=== PATIENT | male | born 1960 | race Caucasian/White ===

== ENCOUNTER 2017-11-17 22:57 | Inpatient (IN) ==
--- NOTE | 2017-11-18 01:16 | Internal Med History&Physical ---
Date of Encounter: 11/18/17 Time of Encounter: 01:12 Internal Medicine - H&P: HPI Chief complaint: right lower abd pain Admitted From: Intrahospital Transfer Plans for Post Hospital Care: Home History of present illness: Mr. Franklin is a 57 year old male Patient with history of smoking, hypertension, previous kidney stone 5 years ago , patient presented to [facility] emergency room with right lower quadrant pain with nausea vomiting fever and chills started about 5 PM yesterday evaluation with ct of abd/pelvis shows a moderate-sized hydronephrosis with 4 mm kidney stone patient was then transferred here for further evaluation patient still have persistent right lower quadrant pain blood pressure was 202/94 patient said he does not go to the doctor and so is not aware of hypertension or medical problems. Past Med Surg Social Fam HX - Past Medical History Medical history: hypertension Additional medical history: patient unsure of history, states he does not go to the doctor. - Social History Smoking Status: Current every day smoker Packs per day: 1 Smokeless Tobacco Status: No Alcohol use: none Drug use: none All Systems PM: A 10-system review of systems was performed and is negative for pertinent findings except as documented above in the HPI. - Head Head exam: Present: atraumatic, normocephalic - Eye Eye exam: Present: PERRL, conjuntiva pink, sclera anicteric Pupils: Present: PERRL - Neck Neck exam general surgery: Present: supple, trachea midline. Absent: lymphadenopathy - Respiratory Respiratory exam: Present: CTAB. Absent: accessory muscle use, rales, rhonchi, wheezes - Cardiovascular Cardiovascular exam: Present: RRR, +S1, +S2. Absent: diastolic murmur, gallop, rubs, systolic murmur - GI/Abdominal GI/Abdominal exam: Present: normal bowel sounds, soft, no peritoneal signs. Absent: distended, tenderness - Extremities Exam Extremities exam: Present: warm, radial pulses palpable and symmetrical. Absent : calf tenderness, cyanotic, pedal edema - Neurological Exam Neurological exam: Present: CN II-XII intact, oriented X3, no focal deficits. Absent: pronater drift, facial droop, speech deficit - Skin Skin exam: Present: dry, intact - Assessment and plan (1) Kidney stone on right side Current Visit: Yes Status: Acute Assessment and plan: presentation with right kidney staone and hydronephrosis will consult urology and keep npo (2) Hypertensive urgency Current Visit: Yes Status: Acute Assessment and plan: will start on norvasc 10 mg po and hydralazine prn (3) Smoking Current Visit: Yes Status: Chronic (4) Leukocytosis Current Visit: Yes Status: Acute Assessment and plan: send for urine and blood cultures Qualifiers: Leukocytosis type: unspecified Qualified Code(s): D72.829 - Elevated white blood cell count, unspecified - Time Spent With Patient Total time spent is greater than 50% in coordination of care (as documented) at patient's floor/unit and/or counseling patient:
[2017-11-18] MEDS ORDERED: *HR* HYDROcodone/Acet 5/325 mg TABLET PO PRN ×3 (01:20→18:55)
[2017-11-18] MEDS ORDERED: Naloxone 0.4 MG/ML INJ IVP PRN ×2 (01:20→18:55)
[2017-11-18] MEDS ORDERED: traMADol 50 MG TABLET PO PRN ×2 (01:20→18:55)
[2017-11-18] MEDS ORDERED: Acetaminophen 325 MG TABLET PO PRN ×2 (01:20→18:55)
[2017-11-18 01:59] LABS: Hematocrit 43.8 % (37.5-50.1); Mean Corpuscular HGB Conc 34.2 g/dL (31.6-35.5); Mean Corpuscular Hemoglobin 31.5 pg (28.0-33.3); Platelet Count 249 K/mcL (140-400); Red Blood Count 4.76 M/mcL (4.19-5.50); Red Cell Distribution Width 12.2 % (11.5-14.5)
[2017-11-18 02:15] LABS: Alanine Aminotransferase 15 Units/L (7-52); Albumin 4.7 g/dL (3.5-5.7); Alkaline Phosphatase 67 Units/L (34-104); Aspartate Amino Transferase 16 Units/L (13-39); BUN/Creatinine Ratio 10 (6-26); Bilirubin,Total 0.7 mg/dL (0.3-1.0); Blood Urea Nitrogen 14 mg/dL (6-20); Calcium 9.1 mg/dL (8.6-10.3); Carbon Dioxide 23 mEq/L (23-29); Chloride 107 mEq/L (98-107); Chol/HDL Ratio 4.3 (0-4.9); Cholesterol 200 mg/dL (< 200); Globulin 2.3 g/dL (2.4-3.5); Glucose 135 mg/dL (70-105); HDL Cholesterol 46 mg/dL (40-59); LDL Cholesterol,Calculated 133 mg/dL (0-99); Magnesium 1.9 mg/dL (1.6-2.6); Osmolality,Calculated 287 (280-300); Potassium 4.1 mEq/L (3.5-5.1); Sodium 137 mEq/L (136-145); Triglycerides 103 mg/dL (< 150); eGFR For Non-African Americans 50 (> 60)
[2017-11-18] MEDS ORDERED: *HR* Enoxaparin 40 MG/0.4 ML SYRINGE SQ SCH (06:00)
[2017-11-18] MEDS ORDERED: Ondansetron 4 MG/2 ML VIAL IVP PRN ×2 (06:01→18:55)
--- NOTE | 2017-11-18 07:16 | Urology - Consult Note ---
Date of Encounter: 11/18/17 Time of Encounter: 07:14 - Assessment and Plan (1) Elevated serum creatinine Current Visit: Yes Status: Acute Assessment and plan: Unsure if this is patient's baseline are related to obstructing stone. Will need IV fluids. We will discuss with my partner Dr. Brennan regarding possible treatment of distal stone. (2) Hypertensive urgency Current Visit: Yes Status: Acute Assessment and plan: Patient does not go to a doctor regularly. Unsure if this is patient's baseline related to pain. (3) Kidney stone on right side Current Visit: Yes Status: Acute Assessment and plan: We will order KUB for evaluation of possible distal stone. We will discuss plan with Dr. Brennan my partner regarding treatment. Urology CN:HPI Consult date: 11/18/17 Reason for consult Urology: Other (right) Requesting physician: Sarmad Little History of present illness: Umang is a 57-year-old male with a history of recent sudden onset of right- sided flank pain. Patient was seen in outside facility. He is found of a distal 4 mm stone. Patient was also found to have severely out of control blood pressure with systolics above 200. Patient with occasional nausea without vomiting. No fevers. Patient did have some mild proximal hydronephrosis. Past Med Surg Social Fam HX - Past Medical History Medical history: hypertension Additional medical history: patient unsure of history, states he does not go to the doctor. - Social History Smoking Status: Current every day smoker Packs per day: 1 Smokeless Tobacco Status: No Alcohol use: none Drug use: none Medications and Allergies 3 Allergy/AdvReac Type Severity Reaction Status Date / Time Amoxicillin Allergy Hives Verified 11/18/17 01:31 Review of Systems - Constitutional no chills, no fever(s) - EENT Nose, mouth and throat: no dizziness, no throat swelling - Cardiovascular no chest pain, no dyspnea - Respiratory no cough, no dyspnea - Gastrointestinal abdominal pain, nausea, no vomiting - Genitourinary as per HPI - Musculoskeletal back pain - Integumentary no erythema, no swelling - Neurological no sensory deficit - Psychiatric no anxiety, no confusion - Hematologic/Lymphatic no lymphadenopathy - Allergic/Immunologic no wheezing Exam Initial Vital Signs Temp Pulse Resp BP Pulse Ox 98 F 70 14 195/115 96 11/18/17 00:53 11/18/17 00:53 11/18/17 00:53 11/18/17 00:53 11/18/17 00:53 General/Neuological: alert and oriented x 3 Eyes: normal pupils, non-icteric Neck: no lymphadenopathy noted, supple to touch Cardiovascular: RRR, no murmurs Respiratory: normal respiratory effort, clear bilaterally ABD: soft, nontender, no masses palpated, good bowel sounds Back: no pain on percussion bilaterally Skin: no rashes noted Musculoskeletal: normal gait, FROMx4 Urology Results - Labs 11/18/17 01:43 11/18/17 01:43 Abnormal lab results WBC 12.3 K/mcL (4.3-11.1) H 11/18/17 01:43 Creatinine 1.45 mg/dL (0.70-1.30) H 11/18/17 01:43 Est GFR (Non-Af Amer) 50 (> 60) L 11/18/17 01:43 Glucose 135 mg/dL (70-105) H 11/18/17 01:43 POC Glucose 127 mg/dL (70-99) H 11/18/17 05:55 Globulin 2.3 g/dL (2.4-3.5) L 11/18/17 01:43 Cholesterol 200 mg/dL (< 200) H 11/18/17 01:43 LDL Cholesterol, Calc 133 mg/dL (0-99) H 11/18/17 01:43 Diabetes panel 11/18/17 Range/Units 01:43 Sodium 137 (136-145) mEq/L Potassium 4.1 (3.5-5.1) mEq/L Chloride 107 (98-107) mEq/L Carbon Dioxide 23 (23-29) mEq/L BUN 14 (6-20) mg/dL Creatinine 1.45 H (0.70-1.30) mg/dL Glucose 135 H (70-105) mg/dL Calcium 9.1 (8.6-10.3) mg/dL AST 16 (13-39) Units/L ALT 15 (7-52) Units/L Alkaline Phosphatase 67 (34-104) Units/L Albumin 4.7 (3.5-5.7) g/dL Triglycerides 103 (< 150) mg/dL HDL Cholesterol 46 (40-59) mg/dL Calcium panel 11/18/17 Range/Units 01:43 Calcium 9.1 (8.6-10.3) mg/dL Albumin 4.7 (3.5-5.7) g/dL Pituitary panel 11/18/17 Range/Units 01:43 Sodium 137 (136-145) mEq/L Potassium 4.1 (3.5-5.1) mEq/L Chloride 107 (98-107) mEq/L Carbon Dioxide 23 (23-29) mEq/L BUN 14 (6-20) mg/dL Creatinine 1.45 H (0.70-1.30) mg/dL Glucose 135 H (70-105) mg/dL Calcium 9.1 (8.6-10.3) mg/dL Adrenal panel 11/18/17 Range/Units 01:43 Sodium 137 (136-145) mEq/L Potassium 4.1 (3.5-5.1) mEq/L Chloride 107 (98-107) mEq/L Carbon Dioxide 23 (23-29) mEq/L BUN 14 (6-20) mg/dL Creatinine 1.45 H (0.70-1.30) mg/dL Glucose 135 H (70-105) mg/dL Calcium 9.1 (8.6-10.3) mg/dL Total Bilirubin 0.7 (0.3-1.0) mg/dL AST 16 (13-39) Units/L ALT 15 (7-52) Units/L Alkaline Phosphatase 67 (34-104) Units/L Albumin 4.7 (3.5-5.7) g/dL All other labs normal. Consult Discharge Plan - Plan Referrals: NONE,PCP [Primary Care Provider] - Alessandro Lock [Family Provider] -
[2017-11-18] MEDS ORDERED: *HR* Promethazine 25 MG/ML VIAL IVP PRN ×3 (08:09→18:55)
[2017-11-18] MEDS ORDERED: cefTRIAXone 1,000 MG in Water for inj. (sterile) 20 ML 10 ML IVP SCH (09:00)
[2017-11-18] MEDS ORDERED: amLODIPine 5 MG TABLET PO SCH (09:00)
[2017-11-18] MEDS: Ringers Solution, Lactated 1,000 ML IVC SCH ×2 (09:03→19:50)
--- NOTE | 2017-11-18 10:11 | Event Note ---
Date of Encounter: 11/18/17 Time of Encounter: 08:15 Patient feeling better today but does have continued to have severe nausea. Urology evaluated patient and are considering possible procedure. Continue to keep nothing by mouth. IV fluids. IV antibiotics. Start Phenergan for nausea.
--- NOTE | 2017-11-18 10:44 | Event Note ---
Date of Encounter: 11/18/17 Time of Encounter: 10:43 I saw and examined Mr. Franklin today. Briefly, he is a 57-year-old gentleman who experienced acute onset right flank pain yesterday. He came to an outside emergency department and a CT scan showed a 4 mm distal right ureteral stone. He is still having pain today and wishes to have a stone removed. I will schedule him for a right ureteroscopy, laser lithotripsy, and stent placement. He was informed of the risks of the procedure including but not limited to bleeding, infection, injury to other structures, need for further procedures, stent irritation, incomplete fragmentation, ureteral perforation, need for nephrostomy tube, need for open repair, risks unforeseen, and the risk of anesthesia. He is willing to proceed.
[2017-11-18] MEDS ORDERED: Isovue-300 50 ML VIAL IVP ONE (14:37)
--- NOTE | 2017-11-18 15:46 | Anesthesia Evaluation PreOp ---
Date of Encounter: 11/18/17 Time of Encounter: 15:44 - Past History Planned Operation: Right Ureteroscopic Stone Extraction Cardiac History: HTN Pulmonary History: Smoker (38 years), Snore AUTHOR AGENT History: Denies Any Significant HX Other Medical History: Renal (kidney stones), GERD Anesthesia History: No Prior Anesthetic Complications, Past Anesthesia Alcohol Use: none Drug use: none Medications and Allergies No Known Home Drugs 11/18/17 [History] 3 Allergy/AdvReac Type Severity Reaction Status Date / Time Amoxicillin Allergy Hives Verified 11/18/17 01:31 - Meds/Allergy Pre-op Review Medications Reviewed: Yes Allergies Reviewed: Yes Beta Blockers on Current Med List: No Anesthesia Results - Labs 11/18/17 01:43 11/18/17 01:43 Anesthesia Exam Vital Signs/O2 Sat/Glucose, Most Recent Temp Pulse Resp BP Pulse Ox 98.7 F 75 16 164/95 96 11/18/17 09:00 11/18/17 09:00 11/18/17 09:00 11/18/17 09:00 11/18/17 09:00 Blood Glucose* 109 Height: 5'8''/1.73m Weight: 180 lbs/81.8 kg NPO (# of Hours): 8 Pain Scale: 0 Pain Scale Used: Numeric (1 - 10) - HEENT Pupil (Motor): EOMI Mallampati: II Teeth: Normal Oral Opening: Greater than 3 - AUTHOR AGENT LOC: Oriented AUTHOR AGENT Motor: Normal RUE, Normal LUE, Normal RLE, Normal LLE, Normal Face AUTHOR AGENT Sensory: Normal: RUE, LUE, RLE, LLE, Face - Cardiac Rhythm: Regular Murmur: None - Pulmonary Breath Sounds: bilateral Clear Respiratory Effort: Symmetrical Anesthesia Assess/Plan ASA Score: 2 Modified Edison Scale for Level of Consciousness: Cooperative, oriented, and tranquil Anesthetic Plan: General Monitoring Plan: Standard Monitors Recovery Plan: PACU
[2017-11-18] MEDS ORDERED: KETAMINE HCL 50 MG/ML SYRINGE IV ONE (15:48)
[2017-11-18] MEDS ORDERED: *HR* FentaNYL (PF) 100 MCG/2 ML VIAL ONE (15:50)
[2017-11-18] MEDS ORDERED: *HR* Midazolam HCl 2 MG/2 ML VIAL ONE (15:50)
[2017-11-18] MEDS ORDERED: *HR* Propofol 200 MG/20 ML VIAL IVP ONE (15:50)
[2017-11-18] MEDS ORDERED: Lidocaine -MPF 2% 2 ML VIAL ONE (15:50)
[2017-11-18] MEDS ORDERED: Acetaminophen IV 1,000 MG/100 ML INFUS..BTL ONE (15:55)
[2017-11-18] MEDS ORDERED: Albuterol 2.5 MG/3 ML NEBULIZER IH ONE (15:58)
[2017-11-18] MEDS ORDERED: Albuterol 2.5 MG/3 ML NEBULIZER ONE (16:00)
--- NOTE | 2017-11-18 16:10 | Event Note ---
Date of Encounter: 11/18/17 Time of Encounter: 10:00 This patient was admitted today . He is admitted here for acute right lower abdominal pain for 1 day .He has worsening right flank pain since yesterday. He has localized, colickey, constant ,right flank pain radiating down to right groin. He rates his pain 9/10 ( yesterday) , now it has come down to 2-3/10 . He reported to an outside emergency department and a CT scan showed a 4 mm right ureteral stone with mild hydronephrosis right side. He admits 1 episode of vomiting and nausea, fever with chills . He is getting better today, he denies any fever ,chills . He is recurrent kidney stone passer, He had h/o kidney stone almost 5 years back, He stated that stone came down without any intervention at that time.He is still having pain today and wishes to have a stone removed. He has planned for right ureteroscopy, laser lithotripsy, and stent placement.We will continue monitoring after he is back from OR. HTN:He has high blood pressure : 202/94 during admission. Now BP has been controlled gradually : latest record 164/95 We are closely monitoring it . Examination finding Head Head exam: Present: atraumatic, normocephalic - Eye Eye exam: Present: PERRL, conjuntiva pink, sclera anicteric Pupils: Present: PERRL - Neck Neck exam general surgery: Present: supple, trachea midline. Absent: lymphadenopathy - Respiratory Respiratory exam: Present: CTAB. Absent: accessory muscle use, rales, rhonchi, wheezes - Cardiovascular Cardiovascular exam: Present: RRR, +S1, +S2. Absent: diastolic murmur, gallop, rubs, systolic murmur - GI/Abdominal GI/Abdominal exam: Soft, mild tenderness in right lumbar region,CVT ++, no rigidity and guarding, no mass , no visible pulsation.BS present, no organomegaly, - Extremities Exam Extremities exam: Present: warm, radial pulses palpable and symmetrical. Absent : calf tenderness, cyanotic, pedal edema - Neurological Exam Neurological exam: Present: CN II-XII intact, oriented X3, no focal deficits. Absent: pronater drift, facial droop, speech deficit - Skin Skin exam: Present: dry, intact
[2017-11-18] MEDS ORDERED: *HR* Succinylcholine 200 MG/10 ML VIAL IVP ONE (16:36)
[2017-11-18] MEDS ORDERED: Ketorolac 30 MG/ML VIAL ONE (16:54)
[2017-11-18] MEDS ORDERED: Ondansetron 4 MG/2 ML VIAL ONE (16:54)
[2017-11-18] MEDS ORDERED: Dexamethasone 4 MG/ML VIAL ONE (16:54)
--- NOTE | 2017-11-18 17:01 | Operative Note ---
Date of procedure: 11/18/17 Pre-op diagnosis: Right ureteral stone Post-op diagnosis: same Procedure: Right ureteroscopy, basket stone extraction, right ureteral stent placement. Implants: 6 [place] Islander x 26cm JJ stent. Complications: none Anesthesia: GETA Surgeon: Rick Brennan Was there an press assistant present: No Estimated blood loss (cc): 0 Specimen: right ureteral stone Condition: stable Disposition: PACU Procedure in Detail: Indications: Mr. Franklin is a 57-year-old gentleman who has a history of right flank pain. A CT scan showed a 4 mm stone in the distal right ureter. He elected to undergo a right ureteroscopy, laser lithotripsy, and stent placement. He is aware of the risks of the procedure including but not limited to bleeding, infection, injury to other structures, need for further procedures, stent irritation, and the risk of anesthesia. He is willing to proceed. Procedure: After informed consent was obtained the patient was brought back to the operating room and placed in supine position. A time out was performed. General anesthesia was administered and an LMA was placed. He was then placed in the lithotomy position. He was prepped and draped in the usual sterile fashion. Cystoscopy was performed. The anterior urethra was normal. There was no evidence of bladder tumors. The ureteral orifices were in the normal orthotopic position. The Zip wire was placed in the right ureteral orifice and brought into the kidney under fluoroscopic guidance. The ureter was gently dilated using the 8/10-Sol[place] Islander ureteral dilator. I then advanced the semirigid ureteroscope into the ureter. The stone was basket extracted. A 6 [place] Islander by 26cm JJ stent was then placed with good curl seen in the kidney and the bladder. The dangle string left intact. The string was secured to the glans using a Tegaderm. The patient was then awakened from general anesthesia and brought to recovery room in good condition. All sponge, needle, and instrument counts were correct.
[2017-11-18] MEDS ORDERED: *HR* Labetalol 20 MG/4 ML SYRINGE IVP PRN (17:06)
[2017-11-18] MEDS ORDERED: *HR* OxyCODONE Immed Rel 5 MG TABLET PO PRN (17:06)
[2017-11-18] MEDS ORDERED: *HR* Labetalol 100 MG/20 ML MDV IVP PRN (17:30)
--- NOTE | 2017-11-18 17:48 | Anesthesia Evaluation Post Op ---
Date of Encounter: 11/18/17 Time of Encounter: 17:40 - Vital Signs Vital Signs: Vital Signs/O2 Sat, Most Current Temp Pulse Resp BP Pulse Ox 98.9 F 78 16 148/98 97 11/18/17 17:01 11/18/17 17:21 11/18/17 17:21 11/18/17 17:21 11/18/17 17:21 - Lungs Lungs: Clear Ascult./Percussion - Airway Airway: Non-obstructed - Cardiovascular Regular Rate, Baseline Rhythm - Mental Status Mental Status: Alert & Oriented, Answers Appropriately - Pain Pain Scale: 0 Pain Scale used: Numeric (1 - 10) - Nausea Vomiting Nausea Vomiting: Not Present - Hydration Hydration: Tolerates oral liquids, Ice chips, Able to void - Discharge PostOp Status: Transfer Patient to floor
[2017-11-19] MEDS: Ringers Solution, Lactated 1,000 ML IVC SCH ×2 (00:53→04:19)
[2017-11-19] MEDS ORDERED: *HR* Enoxaparin 40 MG/0.4 ML SYRINGE SQ SCH (06:00)
--- NOTE | 2017-11-19 08:33 | Urology Progress Note ---
Date of Encounter: 11/19/17 Time of Encounter: 08:32 - Assessment and Plan (1) Kidney stone on right side Current Visit: Yes Status: Acute Assessment and plan: Doing well. He can be discharged home today. He can remove stent in 4-5 days. F/u with urology in 3-4 weeks. Progress Note Narrative: Doing well today. Pain is controlled. No fevers overnight. Objective Initial Vital Signs Temp Pulse Resp BP Pulse Ox 98 F 70 14 195/115 96 11/18/17 00:53 11/18/17 00:53 11/18/17 00:53 11/18/17 00:53 11/18/17 00:53 - General physical appearance Present: well developed, well nourished, no distress - Respiratory Present: normal respiratory effort - Abdomen Present: soft - Labs 11/18/17 01:43 11/18/17 01:43 - VTE Documentation of Mechanical Device: Intermittent pneumatic compression device Consult Discharge Plan - Plan Referrals: Rick Brennan MD [Partnered Physician] -
[2017-11-19 08:42] LABS: BUN/Creatinine Ratio 13 (6-26); Blood Urea Nitrogen 18 mg/dL (6-20); Calcium 8.7 mg/dL (8.6-10.3); Carbon Dioxide 24 mEq/L (23-29); Chloride 106 mEq/L (98-107); Glucose 134 mg/dL (70-105); Osmolality,Calculated 286 (280-300); Potassium 4.4 mEq/L (3.5-5.1); Sodium 136 mEq/L (136-145); eGFR For Non-African Americans 52 (> 60)
[2017-11-19] MEDS ORDERED: amLODIPine 5 MG TABLET PO SCH (09:00)
[2017-11-19] MEDS ORDERED: cefTRIAXone 1,000 MG in Water for inj. (sterile) 20 ML 10 ML IVP SCH (09:00)
--- NOTE | 2017-11-19 10:29 | Discharge Summary ---
- NOTES TO OUTPATIENT PROVIDER Notes to Outpatient Provider: Patient hospitalized for acute renal colic. He was treated with IV fluids and then evaluated by urology and underwent right ureteroscopy, basket stone extraction and right ureteral stent placement. He does have elevation in his creatinine but unknown baseline. He also has uncontrolled hypertension and has been placed on antihypertensives with improvement in his blood pressure. His creatinine is improving but is still elevated. Has been cleared for discharge by urology. Would arrange for outpatient follow-up with urology. We will also arrange for outpatient follow- up with any primary care provider. Also check basic panel in 1 week. Orders not resulted at time of discharge: Pending orders 11/18/17 01:43 Culture,Blood [BC] Routine 11/18/17 16:52 Surgical Pathology [PTH] Routine Date of Encounter: 11/19/17 Time of Encounter: 10:29 - Discharge Diagnosis (1) Ureteric colic Priority: Primary Status: Acute (2) Elevated serum creatinine Priority: Secondary Status: Acute (3) Hypertensive urgency Priority: Secondary Status: Acute (4) Leukocytosis Priority: Secondary Status: Acute Qualifiers: Leukocytosis type: unspecified Qualified Code(s): D72.829 - Elevated white blood cell count, unspecified (5) Smoking Priority: Secondary Status: Chronic Hospital course: Mr. Franklin is a 57 year old male Patient with a history of hypertension not on any medications was hospitalized for acute renal colic. He was treated with IV fluids and then evaluated by urology and underwent right ureteroscopy, basket stone extraction and right ureteral stent placement. He does have elevation in his creatinine but unknown baseline. He also has uncontrolled hypertension and has been placed on antihypertensives with improvement in his blood pressure. His creatinine is improving but is still elevated. Has been cleared for discharge by urology. Would arrange for outpatient follow-up with urology. We will also arrange for outpatient follow-up with any primary care provider. Also check basic panel in 1 week. Discharge discussed with: patient, nurse - Time Spent with Patient Total time spent providing and/or coordinating discharge services: Less than 30 minutes (25 min) - Discharge Medications Prescriptions: Amlodipine Besylate 10 mg PO DAILY #30 tablet Cefdinir [Omnicef] 300 mg PO BID #10 capsule Home Medications: Amlodipine Besylate 10 mg PO DAILY #30 tablet 11/19/17 [Rx] Cefdinir [Omnicef] 300 mg PO BID #10 capsule 11/19/17 [Rx] Allergies/Adverse Reactions: 3 Allergy/AdvReac Type Severity Reaction Status Date / Time Amoxicillin Allergy Hives Verified 11/18/17 01:31 Date of admission: 11/18/17 01:59 Primary care physician: PCP NONE Consults: Urology Discharging clinician: Matheus Martinez Anticipated date of discharge: 11/19/17 - Constitutional Vitals: Temp Pulse Resp BP Pulse Ox 97.7 F 68 16 158/92 97 11/19/17 06:35 11/19/17 06:35 11/19/17 06:35 11/19/17 06:35 11/19/17 06:35 General appearance: Present: cooperative, A&O X 3, pleasant, answers questions appropriately - Respiratory Respiratory exam: Present: CTAB. Absent: accessory muscle use, rales, rhonchi, wheezes - Cardiovascular Cardiovascular exam: Present: RRR, +S1, +S2. Absent: diastolic murmur, gallop, rubs, systolic murmur - GI/Abdominal GI/Abdominal exam: Present: normal bowel sounds, soft, no peritoneal signs. Absent: distended, tenderness - Extremities Exam Extremities exam: Present: warm, radial pulses palpable and symmetrical. Absent : calf tenderness, cyanotic, pedal edema - Skin Skin exam: Present: dry, intact - Patient Status Disposition: Home, Self-Care Condition: Good Functional capacity at discharge: independent ambulation Overall status at discharge: patient is back to baseline - Discharge Instructions Instructions: Chronic Hypertension (DC), Urethral Stent Placement (DC) Follow Up With: Rula Anders CNP [Partnered Physician] - 11/25/17 10:00 am (Please arrive a 1/2 hour early to fill out paperwork. Please bring your photo ID, insurance card and any medications you are on. If you need to cancel, please give a 24 hour notice. Thank you) Rick Brennan MD [Partnered Physician] - 12/05/17 3:00 pm (in 1-2 weeks) Forms: Inpatient Work/School Release - Diet and Activity Activity: increase activity as tolerated Diet: low salt diet - VTE Documentation of Mechanical Device: Intermittent pneumatic compression device
[2017-11-19 10:33] VITALS: BP 153/89
== END 2017-11-19 16:37 | disposition home or self-care (01) | DRG 669 ==
LOC: 3ANU → SUATTDRO 11-18 01:59
PROVIDERS: ADMIT Student in an Organized Health Care Education/Training Program; ATTEND Internal Medicine